=== PATIENT | female | born 1990 | race Caucasian/White ===

== ENCOUNTER → 2016-11-23 | Outpatient (CLI) | payer OTHER ==
[~2016-11-23] MED LIST: COLACE 100MG C100 MG PO
== END ==
LOC: GENOP 22:58
DX: O42.913 Preterm premature rupture of membranes, unspecified as to length of time between rupture and onset of labor, third trimester (principal); M54.5 Low back pain; Z3A.33 33 weeks gestation of pregnancy
CPT/HCPCS: 81001; 82731; 83518; G0463

== ENCOUNTER 2016-12-05 20:26 | Outpatient (CLI) | payer OTHER | END 2016-12-06 08:54 | disposition home or self-care (01) | LOC: GENOP 20:26 | PROVIDERS: Obstetrics & Gynecology | DX: O99.89 Other specified diseases and conditions complicating pregnancy, childbirth and the puerperium (principal); R10.9 Unspecified abdominal pain; Z3A.37 37 weeks gestation of pregnancy | CPT/HCPCS: 80307; 81001; 96360; 96361; 96372; 96374; J2300; J3105; J7120; Q0163 ==

== ENCOUNTER 2016-12-26 17:29 | Outpatient (CLI) | payer OTHER ==
[~2016-12-26] VITALS: Ht 167.6 cm; Wt 95.7 kg
== END 2016-12-26 21:05 | disposition home or self-care (01) ==
LOC: GENOP 17:29
DX: O36.8130 Decreased fetal movements, third trimester, not applicable or unspecified (principal); Z3A.37 37 weeks gestation of pregnancy
CPT/HCPCS: G0463

== ENCOUNTER 2017-01-04 10:21 | Inpatient (IN) | payer OTHER ==
[~2017-01-04] VITALS: Ht 167.6 cm; Wt 95.7 kg
[2017-01-05 04:19] LABS: HEMOGLOBIN 9.9 gm/dl (12.3-15.3)
[2017-01-07] MEDS ORDERED: COLACE 100MG C100 MG PO (11:43)
== END 2017-01-07 16:23 | disposition home or self-care (01) | DRG 765 ==
LOC: OB 10:21
PROVIDERS: ADMIT Obstetrics & Gynecology
PROC: 10D00Z1 Extraction of Products of Conception, Low, Open Approach (ICD-10-PCS; principal; 2017-01-04 14:13)
DX: O34.211 Maternal care for low transverse scar from previous cesarean delivery (principal); O99.323 Drug use complicating pregnancy, third trimester; N85.8 Other specified noninflammatory disorders of uterus; Z3A.39 39 weeks gestation of pregnancy; Z37.0 Single live birth; Z88.1 Allergy status to other antibiotic agents; Z88.3 Allergy status to other anti-infective agents; Z88.2 Allergy status to sulfonamides; O34.43 Maternal care for other abnormalities of cervix, third trimester
CPT/HCPCS: 36415; 81001; 85014; 85018; 85025; C9113; J1580; J2274; J2590; J2765; J3010; J3430; J7120; Q0163